=== PATIENT | female | born 1935 | race Caucasian/White ===

== ENCOUNTER 2017-11-09 00:32 | Inpatient (IN) | payer MEDICARE, OTHER ==
[2017-11-08 15:36] LABS: INR 1.03
[2017-11-09] VITALS (14 sets, daily range): BP systolic 110–148; BP diastolic 57–98
[~2017-11-09] VITALS: Ht 162.6 cm; Wt 71.7 kg
[~2017-11-09 00:32] MED LIST: CYCL1DRO6 OP; DILSR120 PO; ENO40I SQ; HCTZ25 PO; LEVO75TA68 PO; LISI-368 PO; LOR7.5/325 PO; METH5TAB85 PO; MOM PO; THY60 PO
[2017-11-09] MEDS: NORMOSOL R SOLN(*) 1000 ML BAG 1,000 ML IV PRN ×2 (06:10→12:47)
[2017-11-09] MEDS ORDERED: ACETAMINOPHEN(*)1000 MG/100 ML 100 ML IVPB ONE (07:45)
[2017-11-09] MEDS ORDERED: LIDOCAINE/SOD BICARB 8.4% SYR ID ONE (07:45)
[2017-11-09] MEDS ORDERED: cloNIDine EPIDUR INJ 100MCG/ML 40 MCG, ROPIVACAINE 0.5% 20 ML VIAL 25 ML, EPINEPHrine H... INJ ONE (07:45)
[2017-11-09] MEDS ORDERED: TRANEXAMIC AC 1000 MG/10ML SDV 1,000 MG in DEXTROSE 5% 50 ML BAG 50 ML IV ONE (07:45)
[2017-11-09] MEDS ORDERED: ceFAZolin(*) 1 GM VIAL 1 GM in NS(*) 0.9% 100 ML ADDVANT BAG 100 ML IVPB ONE (07:45)
[2017-11-09] MEDS ORDERED: MIDAZOLAM 2 MG/2 ML VIAL IVP PRN (07:45)
[2017-11-09] MEDS ORDERED: FAMOTIDINE 20 MG TAB PO ONE (07:45)
[2017-11-09] MEDS ORDERED: fentaNYL CITR 100 MCG/2 ML AMP ONE ×2 (07:47→11:05)
[2017-11-09] MEDS ORDERED: ONDANSETRON 4 MG/2 ML VIAL ONE (07:57)
[2017-11-09] MEDS ORDERED: PROPOFOL EMUL(*) 10MG/ML 20 ML 20 ML ONE (07:57)
[2017-11-09] MEDS ORDERED: LIDOCAINE MPF 1% 5 ML VIAL ONE (07:57)
[2017-11-09] MEDS ORDERED: DEXAMETHASONE SOD PHOS 10MG/ML ONE (07:57)
[2017-11-09] MEDS ORDERED: KETAMINE HCL 200 MG/20 ML MDV ONE (08:03)
[2017-11-09] MEDS ORDERED: EPHEDRINE SULFATE/NS/PF 50 MG/10 ML SYRINGE ONE (08:57)
--- NOTE | 2017-11-09 11:06 | HISTORY AND PHYSICAL ---
DATE OF ADMISSION: November 09, 2017 IDENTIFICATION, CHIEF COMPLAINT Jennifer is an 81-year-old woman with chief complaint of right hip pain. HISTORY OF PRESENT ILLNESS Patient has a longstanding history of hip arthritis, progressively painful and debilitating, refractory to conservative care. Surgery is indicated to relieve symptoms after failure of nonoperative measures. PAST MEDICAL HISTORY Notable for hypertension controlled on medication, chronic anticoagulation, history of deep vein thrombosis, hypothyroidism controlled on medication, narcolepsy. PAST SURGICAL HISTORY Notable for hysterectomy, knee arthroscopies. FAMILY HISTORY Notable for a father with heart disease and mother with arthritis. SOCIAL HISTORY Negative for tobacco and alcohol use. ALLERGIES She has no known drug allergies. CURRENT MEDICATIONS 1. Lisinopril 20 mg p.o. q.day. 2. Diltiazem 120 mg p.o. q.day. 3. Hydrochlorothiazide 25 mg p.o. q.day. 4. Levothyroxine 75 mcg p.o. q.day. 5. Coumadin 5 mg p.o. q.day and 7.5 mg on Wednesdays. PHYSICAL EXAMINATION GENERAL: This is a well-developed female who appears stated age. HEENT: She is normocephalic, atraumatic. NECK: Supple. LUNGS: Clear. HEART: Regular. ABDOMEN: Soft. ORTHOPEDIC EXAM: The right hip is painful with any combined flexion and rotation. She is stiff at the end range of internal rotation. She has mild loss of abduction. Hip girdle strength is reasonable within the comfortable range. Skin envelope is intact. Neurovascular function is intact. Calf is nontender. RADIOGRAPHIC DATA Radiographs demonstrate end-stage hip arthritis. ASSESSMENT Right hip end-stage degenerative joint disease, progressively painful and debilitating, refractory to conservative care. PLAN Per patient request, we are going to proceed with total hip arthroplasty. Nature of the procedure, risks, benefits, and nonoperative alternatives are reviewed. Risks of the procedure include, but are not limited to, , major medical or anesthetic complication, infection, neurovascular injury, blood transfusion, stiffness, scarring, fracture, tendon rupture, instability, leg length discrepancy, implant loosening, migration or failure, persistent or recurrent pain, need for additional surgery, and other unforeseen. She understands and wishes to proceed. Signed permit was placed in the chart, no guarantees given or implied. An anticoagulation regimen has been determined by her primary care physician. Will follow this for perioperative DVT prophylaxis. TOMAS
[2017-11-09] MEDS ORDERED: FLUSH 10 ML SYR IVP PRN (11:15)
[2017-11-09] MEDS ORDERED: ZOLPIDEM TARTRATE 5 MG TAB PO PRN (11:15)
[2017-11-09] MEDS ORDERED: PROMETHAZINE 25 MG/ML 1 ML AMP IVP PRN (11:15)
[2017-11-09] MEDS ORDERED: diphenhydrAMINE 50 MG/ML VIAL IVP PRN (11:15)
[2017-11-09] MEDS ORDERED: DIAZEPAM 5 MG TAB PO PRN (11:15)
[2017-11-09] MEDS ORDERED: NORMOSOL R SOLN(*) 1000 ML BAG 1,000 ML IV PRN (11:15)
[2017-11-09] MEDS ORDERED: BENZOCAINE/MENTHOL 1 EACH LOZG PO PRN (11:15)
[2017-11-09] MEDS ORDERED: BISACODYL 10 MG SUPP PR PRN (11:15)
[2017-11-09] MEDS ORDERED: ACETAMINOPHEN 325 MG TAB PO PRN (11:15)
[2017-11-09] MEDS: APAP/HYDROCODONE 325/7.5 TAB PO PRN ×3 (12:30→21:01)
[2017-11-09] MEDS ORDERED: METH27TA2 PO (13:41)
--- NOTE | 2017-11-09 13:44 | Hospitalist Consultation ---
History of Present Illness Requesting Physician Dr. Han Reason for Consult Medication Management Chief Complaint s/p right total hip replacement History of Present Illness She was admitted s/p right total hip replacement. She has a history of DVT in 2013 and Factor V Leiden deficiency. Past medical history includes hypertension , narcolepsy, hypothyroidism, and osteoarthritis. History Problems: (1) Hypertension Status: Chronic (2) Hypothyroidism Status: Chronic (3) Narcolepsy Status: Chronic (4) Factor V deficiency Status: Chronic (5) DVT (deep venous thrombosis) Status: Resolved Home Meds Reported Medications Methylphenidate Hcl (METHYLPHENIDATE ER) 27 Mg Tab.er.24, 27 MG PO QDAY 11/09/17 Levothyroxine Sodium (Levothyroxine Sodium) 75 Mcg Tablet, 0.075 MG PO DAILY, 0 Refills 07/19/09 Enoxaparin Sodium (Lovenox) 40 Mg/0.4 Ml Syr, 40 MG SQ QDAY, 0 Refills TWO WEEK SUPPLY 07/19/09 Diltiazem Hcl (Diltiazem Er) 120 Mg Cap.sr.12h, 120 MG PO BID, 0 Refills 07/16/09 Cyclosporine (Restasis) 32 Ea [place], 1 EA OP QPM, 0 Refills 07/16/09 Hydrochlorothiazide (Hydrochlorothiazide) 25 Mg Tab, 25 MG PO QDAY, 0 Refills 07/16/09 Lisinopril (Lisinopril) 20 Mg Tablet, 1 TAB PO QAM, 0 Refills 07/16/09 Discontinued Reported Medications Acetaminophen/Hydrocodone (Lortab 7.5/325 Mg) 7.5 Mg/325 Mg Tab, 1 - 2 TAB PO Q4H Y, #40 0 Refills 07/19/09 Al Hydroxide/Mg Hydroxide (Milk Of Magnesia) 30 Ml Susp, 30 ML PO Q8H Y, 0 Refills 07/19/09 Methylphenidate Hcl (Ritalin) 5 Mg Tablet, 5 MG PO TID, 0 Refills 07/16/09 Thyroid ([place] Thyroid) 60 Mg Tab, 60 MG PO QAM, 0 Refills 07/16/09 Allergies: Coded Allergies: No Known Drug Allergies (Verified , 11/09/17) Patient History: FH: PR (myocardial infarction) FATHER Hx Smoking: No Smoking Status: Never Smoker Caffeine Intake: Coffee, Tea Caffeine/Cups Per Day: 3-4 Hx Alcohol Use: Yes Alcohol Used: Wine Hx Substance Use Disorder: No Social Drug Use: Never Review of Systems All Systems Reviewed/Normal: Yes, Except as Noted Exam Vital Signs Vital Signs Date Time Temp Pulse Resp B/P (MAP) Pulse Ox O2 Delivery O2 Flow Rate FiO2 11/09/17 12:05 80 12 96 11/09/17 06:13 96.9 130/77 (94) Room Air General Appearance: Alert, Awake, No Acute Distress, Afebrile Cardiovascular: Regular Rate and Rhythm Respiratory: No Respiratory Distress, Clear to Auscultation Psych: Alert & Oriented X3, Appropriate Mood & Affect Assessment and Plan Problems: (1) Status post right hip replacement Status: Acute Assessment & Plan: She has history of DVT in 2013. She will be placed on Lovenox starting tomorrow. She will restart Coumadin tonight. We will order daily INR's for management of Coumadin levels. (2) Factor V deficiency Status: Chronic Assessment & Plan: She is on chronic treatment with Coumadin. See above. (3) Hypertension Status: Chronic Assessment & Plan: She is on chronic treatment with Diltiazem, Lisinopril, and hydrochlorothiazide. The medications have been restarted with hold parameters. (4) Hypothyroidism Status: Chronic Assessment & Plan: She is on chronic treatment with levothyroxine. (5) Narcolepsy Status: Chronic Assessment & Plan: She is on chronic treatment with methylphenidate. Venous Thromboembolism Antithrombotics Is Pt On Any Antithrombotics?: Yes ALYSHA LEDESMAP Nov 09, 2017 13:44
--- NOTE | 2017-11-09 14:52 | RADIOLOGY IMAGING REPORT ---
FACILITY: [facility] PATIENT NAME: Jennifer Lion : 1935 MR: [id number] V: [id number] EXAM DATE: ORDERING PHYSICIAN: TARA SCHAEFFER TECHNOLOGIST: Location: [facility] Patient: Jennifer Lion : 1935 Visit/Account:[id number] Date of Sevice: 11/09/2017 Exam type: PELVIS History: S/P R JEAN CARLOS Comparison: August 10, 2017. Findings: A single AP view the right hip reveals a right hip arthroplasty that appears in good anatomic alignme nt. Soft tissue gas projects over this postoperative hip IMPRESSION: 1. As above Report Dictated By: Tavia Roberto MD at 11/09/2017 2:47 PM Report E-Signed By: Tavia Roberto MD at 11/09/2017 2:48 PM WSN:[id number]
[2017-11-09] MEDS: ceFAZolin(*) 1 GM VIAL 1 GM in NS(*) 0.9% 100 ML ADDVANT BAG 100 ML IVPB SCH (16:17)
[2017-11-09] MEDS: CELECOXIB 200 MG CAP PO SCH (16:44)
[2017-11-09] MEDS ORDERED: WARFARIN SOD 10 MG TAB PO ONE (21:00)
[2017-11-09] MEDS: DILTIAZEM CD 120 MG CAPCR PO SCH (21:07)
[2017-11-09] MEDS: diphenhydrAMINE 25 MG CAP PO PRN (21:12)
[2017-11-10] MEDS: ceFAZolin(*) 1 GM VIAL 1 GM in NS(*) 0.9% 100 ML ADDVANT BAG 100 ML IVPB SCH ×2 (01:03→08:37)
[2017-11-10 03:49] VITALS: BP 141/83
[2017-11-10] MEDS: APAP/HYDROCODONE 325/7.5 TAB PO PRN ×3 (03:57→21:36)
[2017-11-10] MEDS: LEVOTHYROXINE SOD 0.075 MG TAB PO SCH (05:31)
[2017-11-10 05:39] LABS: INR 1.05
[2017-11-10 07:37] VITALS: BP 143/73
[2017-11-10] MEDS: DILTIAZEM CD 120 MG CAPCR PO SCH ×3 (08:36→20:51)
[2017-11-10] MEDS: CELECOXIB 200 MG CAP PO SCH ×2 (08:37→16:21)
[2017-11-10] MEDS: METHYLPHENIDATE 27 MG TABER PO SCH (08:37)
[2017-11-10] MEDS: ENOXAPARIN 100 MG/ML SYR SC SCH ×2 (08:37→20:52)
[2017-11-10] MEDS: HYDROCHLOROTHIAZIDE 25 MG TAB PO SCH (08:38)
[2017-11-10] MEDS: LISINOPRIL 20 MG TAB PO SCH (08:38)
[2017-11-10] MEDS ORDERED: THYROID 60 MG TAB PO SCH (09:00)
[2017-11-10] MEDS ORDERED: DILTIAZEM CD 120 MG CAPCR PO SCH (09:00)
[2017-11-10] MEDS ORDERED: METHYLPHENIDATE HCL 5 MG TAB PO SCH (09:00)
[2017-11-10] MEDS ORDERED: LISINOPRIL 20 MG TAB PO SCH (09:00)
[2017-11-10 11:22] VITALS: BP 122/67
--- NOTE | 2017-11-10 11:40 | Hospitalist Progress Note ---
Subjective Progress Notes Subjective She has no complaints this morning. Patient Complains of: Cardiovascular: No: Chest Pain Respiratory: No: Shortness of Breath Physical Exam Vital Signs Date Time Temp Pulse Resp B/P (MAP) Pulse Ox O2 Delivery O2 Flow Rate FiO2 11/10/17 11:22 98.5 95 12 122/67 (85) 90 Room Air 11/10/17 07:44 2.0 Intake and Output 11/11/17 01:00 Intake Total 971 ml Balance 971 ml Intake Oral 760 ml IV Total 211 ml # Voids 1 General Appearance: Alert, Awake, No Acute Distress, Afebrile Cardiovascular: Regular Rate and Rhythm Respiratory: No Respiratory Distress, Clear to Auscultation Psych: Alert & Oriented X3, Appropriate Mood & Affect Assessment and Plan Problems: (1) Status post right hip replacement Status: Acute Assessment & Plan: She has history of DVT in 2013. She will be placed on Lovenox starting today. She restarted Coumadin last night. We will order daily INR's for management of Coumadin levels. INR today is 1.05. (2) Factor V deficiency Status: Chronic Assessment & Plan: She is on chronic treatment with Coumadin. See above. (3) Hypertension Status: Chronic Assessment & Plan: She is on chronic treatment with Diltiazem, Lisinopril, and hydrochlorothiazide. The medications have been restarted with hold parameters. (4) Hypothyroidism Status: Chronic Assessment & Plan: She is on chronic treatment with levothyroxine. (5) Narcolepsy Status: Chronic Assessment & Plan: She is on chronic treatment with methylphenidate. Exam Sepsis Risk: No Definite Risk ALYSHA LEDESMA CYBER SECURITY ADMINISTRATOR Nov 10, 2017 11:40
--- NOTE | 2017-11-10 14:26 | OPERATIVE REPORT 1 ---
EVENT DATE: November 09, 2017 SURGEON: Ras Han MD ANESTHESIOLOGIST: Chandu Acosta MD ANESTHESIA: General plus spinal. NUTRITION THERAPIST: ARTURO Doran PREOPERATIVE DIAGNOSIS Right hip degenerative joint disease. POSTOPERATIVE DIAGNOSIS Right hip degenerative joint disease. PROCEDURE PERFORMED Right total hip arthroplasty. ESTIMATED BLOOD LOSS Minimal. DRAINS None. SPECIMENS None. COMPLICATIONS The initial acetabular components it not adequately fixed, requiring explantation and reimplantation of a larger more highly coated acetabular component. IMPLANTS USED Jarrod Secur-Fit stem size 9, a 36 mm +2.5 Biolox Alumina ceramic head. A 52 mm Tritanium hemispherical cluster hole shell with two 6.5 screws for adjuvant fixation, a 0 degree poly insert, a Trident 48 PSL MANNING coated was explanted. INDICATIONS Jennifer is an 82-year-old woman with intractable pain related to end-stage hip arthritis. Surgery is indicated to relieve symptoms after failure of nonoperative measures. DESCRIPTION OF PROCEDURE Patient was taken to the operating room. She was placed supine on the operating room table. Spinal block is administered by the anesthesiologist. General anesthesia is induced. Antibiotics are administered IV. The patient is subsequently positioned left lateral decubitus on a well-padded peg board, pelvis secured in a vertical position. All bony prominences and superficial nerves are well padded. Right hip girdle and lower extremity are prepped and draped in the usual sterile fashion for orthopedic surgery. A small incision, posterolateral approach is made, carried down through the skin and subcu to the deep fascia. Fascia is incised over the tip of the trochanter, extended distally in line with the femur, proximally in line with the mark fibers. Mark fibers are split bluntly. Trochanteric bursa is excised. Interval between the abductor and external rotator is identified. A blunt Hohmann is used to protect the abductor mechanism. An L capsulotomy/tenotomy is performed with the horizontal limb just above the pyriformis and the vertical limb peeling the capsule and the external rotators off the posterior femur. This is tagged with #2 Vicryl for later anatomic reattachment. Femoral head is dislocated. End-stage arthritis is noted. A 1.5 cm neck cut is made consistent with preoperative templating. Femoral head is extracted. Femur is translocated anteriorly. Periacetabular retractors are placed with the tips down on bone. Labrum and pulvinar are excised. The patient has a retroverted [place] acetabulum. A medial reaming with the 44 is used to medialize to the true medial wall of the acetabulum. This is expanded in 2 mm increments up to 48. Good rim contact is obtained. Trial 48 has good line to line fit. The actual PSL shell is then impacted in approximately 45 degrees of lateral opening and 20 degrees of anteversion using the extracorporeal guide as well as internal bony landmarks to guide socket placement. Due to the retroversion, the relatively limited posterior superior wall, as this does not obtain great purchase, I drilled a central 2.5 mm hole to reassess the potential depth medially and medialized a bit more with the reamer and expanded up. A more highly coated hemispherical shell was selected, reamed up to 51, and a trial 52 has good rim fit, and a Tritanium cup is implanted in the same position. Two adjuvant screws are placed posterior superior to ensure solid fixation. Rock solid fixation is achieved. 0 degree liner is impacted into the socket. Attention is turned to femoral preparation. Superior neck is resected with a cookie cutter. Cherrie awl finds the canal. Tapered reaming is performed up to 9, where good endosteal contact is obtained. Broaching starts with a 7, follows up to 9, taking care to lateralize and follow the version of the calcar at about 10-15 degrees of anteversion. Trial reduction is performed off of the 9 broach, and good religious of limb length and stability are achieved. The actual stem is impacted and seats at the same height, +2.5 is optimal for religious of limb length, soft tissue tension and stability. The Cotter taper is lavaged and dried. The actual Biolox head is impacted into position. Joint is reduced. Surfaces are copiously lavaged. Pain cocktail is infiltrated throughout the wound. The capsule and external rotators are reapproximated through drill holes posterolaterally on the trochanter. Deep fascia is closed with #2 Ethibond distally, #2-Vicryl proximally. Subcu is closed with 3-0 Vicryl, skin with surgical isauro. Xeroform is applied followed by dry sterile dressing and hip wrap. Patient is rolled supine. Abduction pillow is placed. She is awakened from anesthesia and taken to the recovery room in stable condition, having tolerated procedure well. Plan is for standard JEAN CARLOS rehab protocol. MTDD
[2017-11-10 14:58] VITALS: BP 135/74
[2017-11-10 16:57] VITALS: Ht 162.6 cm; Wt 71.7 kg
[2017-11-10] MEDS ORDERED: cycloSPORINE 0.05% EMUL 1 DROP OU SCH (17:00)
[2017-11-10 20:41] VITALS: BP 131/82
[2017-11-10] MEDS ORDERED: WARFARIN SOD 7.5 MG TAB PO SCH (21:00)
[2017-11-10] MEDS: diphenhydrAMINE 25 MG CAP PO PRN (21:36)
[2017-11-10 23:25] VITALS: BP 120/67
[2017-11-11 03:08] VITALS: BP 150/97
[2017-11-11] MEDS: APAP/HYDROCODONE 325/7.5 TAB PO PRN ×3 (04:07→21:21)
[2017-11-11] MEDS: LEVOTHYROXINE SOD 0.075 MG TAB PO SCH (05:57)
[2017-11-11 07:14] VITALS: BP 138/72
[2017-11-11 07:19] LABS: INR 1.34
[2017-11-11] MEDS: DILTIAZEM CD 120 MG CAPCR PO SCH ×2 (08:43→21:21)
[2017-11-11] MEDS: CELECOXIB 200 MG CAP PO SCH ×2 (08:43→16:24)
[2017-11-11] MEDS: METHYLPHENIDATE 27 MG TABER PO SCH (08:44)
[2017-11-11] MEDS: ENOXAPARIN 100 MG/ML SYR SC SCH ×2 (08:45→21:21)
[2017-11-11] MEDS: LISINOPRIL 20 MG TAB PO SCH (08:45)
[2017-11-11] MEDS: HYDROCHLOROTHIAZIDE 25 MG TAB PO SCH (08:46)
[2017-11-11 11:17] VITALS: BP 146/78
--- NOTE | 2017-11-11 11:44 | Hospitalist Progress Note ---
Subjective Progress Notes Subjective She has no complaints this morning. Patient Complains of: Cardiovascular: No: Chest Pain Respiratory: No: Shortness of Breath Physical Exam Vital Signs Date Time Temp Pulse Resp B/P (MAP) Pulse Ox O2 Delivery O2 Flow Rate FiO2 11/11/17 11:17 98.1 74 16 146/78 (100) 95 Nasal Cannula 0.5 Intake and Output 11/12/17 06:59 Intake Total 360 ml Balance 360 ml Intake Oral 360 ml # Voids 1 General Appearance: Alert, Awake, No Acute Distress, Afebrile Cardiovascular: Regular Rate and Rhythm Respiratory: No Respiratory Distress, Clear to Auscultation Psych: Alert & Oriented X3, Appropriate Mood & Affect Assessment and Plan Problems: (1) Status post right hip replacement Status: Acute Assessment & Plan: She has history of DVT in 2013. She started Lovenox 11/10. She restarted Coumadin 11/09. We will order daily INR's for management of Coumadin levels. INR today is 1.34. (2) Factor V deficiency Status: Chronic Assessment & Plan: She is on chronic treatment with Coumadin. See above. (3) Hypertension Status: Chronic Assessment & Plan: She is on chronic treatment with Diltiazem, Lisinopril, and hydrochlorothiazide. The medications have been restarted with hold parameters. (4) Hypothyroidism Status: Chronic Assessment & Plan: She is on chronic treatment with levothyroxine. (5) Narcolepsy Status: Chronic Assessment & Plan: She is on chronic treatment with methylphenidate. Exam Sepsis Risk: No Definite Risk ALYSHA LEDESMA TOPLINE BEADING MACHINE TENDER Nov 11, 2017 11:43
[2017-11-11 14:58] VITALS: BP 100/58
[2017-11-11] MEDS ORDERED: WARFARIN SOD 5 MG TAB PO SCH (21:00)
[2017-11-11 21:16] VITALS: BP 164/78
[2017-11-11] MEDS: MAGNESIUM HYDROXIDE* 30ML UDCP PO PRN (21:20)
[2017-11-11 23:24] VITALS: BP 123/61
[2017-11-12 03:05] VITALS: BP 132/64
[2017-11-12] MEDS: APAP/HYDROCODONE 325/7.5 TAB PO PRN (05:37)
[2017-11-12] MEDS: LEVOTHYROXINE SOD 0.075 MG TAB PO SCH (05:37)
[2017-11-12 06:14] LABS: INR 1.56
[2017-11-12 08:00] VITALS: BP 138/66
[2017-11-12] MEDS: DILTIAZEM CD 120 MG CAPCR PO SCH (08:12)
[2017-11-12] MEDS: HYDROCHLOROTHIAZIDE 25 MG TAB PO SCH (08:12)
[2017-11-12] MEDS: LISINOPRIL 20 MG TAB PO SCH (08:12)
[2017-11-12] MEDS: METHYLPHENIDATE 27 MG TABER PO SCH (08:23)
[2017-11-12] MEDS: CELECOXIB 200 MG CAP PO SCH (08:23)
[2017-11-12] MEDS: ENOXAPARIN 100 MG/ML SYR SC SCH (08:24)
[2017-11-12] MEDS: MAGNESIUM HYDROXIDE* 30ML UDCP PO PRN (08:24)
--- NOTE | 2017-11-12 09:41 | Hospitalist Progress Note ---
Subjective Progress Notes Subjective She has no complaints this morning. Patient Complains of: Cardiovascular: No: Chest Pain Respiratory: No: Shortness of Breath Physical Exam Vital Signs Date Time Temp Pulse Resp B/P (MAP) Pulse Ox O2 Delivery O2 Flow Rate FiO2 11/12/17 08:15 96 Nasal Cannula 0.5 11/12/17 08:00 98.2 16 138/66 (90) 11/12/17 03:05 70 General Appearance: Alert, Awake, No Acute Distress, Afebrile Cardiovascular: Regular Rate and Rhythm Respiratory: No Respiratory Distress, Clear to Auscultation Psych: Alert & Oriented X3, Appropriate Mood & Affect Assessment and Plan Problems: (1) Status post right hip replacement Status: Acute Assessment & Plan: She has history of DVT in 2013. She started Lovenox 11/10. She restarted Coumadin 11/09. We will order daily INR's for management of Coumadin levels on ECF. INR today is 1.56. (2) Factor V deficiency Status: Chronic Assessment & Plan: She is on chronic treatment with Coumadin. See above. (3) Hypertension Status: Chronic Assessment & Plan: She is on chronic treatment with Diltiazem, Lisinopril, and hydrochlorothiazide. The medications have been started with hold parameters. (4) Hypothyroidism Status: Chronic Assessment & Plan: She is on chronic treatment with levothyroxine. (5) Narcolepsy Status: Chronic Assessment & Plan: She is on chronic treatment with methylphenidate. Exam Sepsis Risk: No Definite Risk ALYSHA LEDESMA TAPE SEWING MACHINE OPERATOR Nov 12, 2017 09:41
[2017-11-12] MEDS ORDERED: WARF5TAB23 PO (16:26)
== END 2017-11-12 11:30 | DRG 470 ==
LOC: OR 00:32 → MED 12:05
PROVIDERS: ADMIT Orthopaedic Surgery; ATTEND Orthopaedic Surgery
PROC: 0SR904Z Replacement of Right Hip Joint with Ceramic on Polyethylene Synthetic Substitute, Open Approach (ICD-10-PCS; principal; 2017-11-09 08:31)
DX: M16.11 Unilateral primary osteoarthritis, right hip (principal); D68.51 Activated protein C resistance; I10 Essential (primary) hypertension; E03.9 Hypothyroidism, unspecified; G47.419 Narcolepsy without cataplexy; Z96.651 Presence of right artificial knee joint; Z86.718 Personal history of other venous thrombosis and embolism; Z79.01 Long term (current) use of anticoagulants; Z90.710 Acquired absence of both cervix and uterus; Z85.828 Personal history of other malignant neoplasm of skin
CPT/HCPCS: 36415; 72170; 85610; 86850; 86900; 86901; 97161; A9270; C1713; C1776; J0131; J0171; J0690; J0735; J1100; J1650; J1885; J2001; J2250; J2405; J2704; J2795; J3010; J3490; J7050; J7060; Q0163

== ENCOUNTER 2017-11-12 11:35 | Inpatient (IN) | payer MEDICARE, OTHER ==
[~2017-11-12] VITALS: Ht 162.6 cm; Wt 77.0 kg
[~2017-11-12 11:35] MED LIST changes: +METH27TA2 PO
[2017-11-12 11:50] VITALS: BP 147/65
[2017-11-12] MEDS ORDERED: DILTIAZEM CD 120 MG CAPCR PO SCH (12:17)
[2017-11-12] MEDS ORDERED: HYDROCHLOROTHIAZIDE 25 MG TAB PO SCH (12:17)
[2017-11-12] MEDS ORDERED: ACETAMINOPHEN 325 MG TAB PO PRN (12:17)
[2017-11-12] MEDS ORDERED: BISACODYL 10 MG SUPP PR PRN (12:17)
[2017-11-12] MEDS ORDERED: WARFARIN SOD 7.5 MG TAB PO SCH (12:17)
[2017-11-12] MEDS ORDERED: LISINOPRIL 20 MG TAB PO SCH (12:17)
[2017-11-12] MEDS ORDERED: MAGNESIUM HYDROXIDE* 30ML UDCP PO PRN (12:20)
--- NOTE | 2017-11-12 12:49 | Consultant Pharmacy Review ---
Chief Cloth Finishing Range Operator Review Medication Review Do All Mecications have a Diag: Yes Disease-Drug Interactions History of Falls/Fractures: Opioids Other General Cautions Lexicomp Interaction Analysis A = No known interaction C = Monitor therapy X = Avoid combination B = No action needed D = Consider therapy modification Drugs in this analysis: Acetaminophen; Bisacodyl; CeleBREX; Concerta; Coumadin; DilTIAZem CD; HydroCHLOROthiazide; Levothyroxine; Lortab; Lovenox; Milk of Magnesia [OTC]; Prinivil * Drug-Drug Interactions D Bisacodyl Milk of Magnesia [OTC] (Antacids) D Levothyroxine Milk of Magnesia [OTC] (Magnesium Salts) Depends on Route C Acetaminophen Coumadin (Vitamin K Antagonists) Depends on Dose C CeleBREX (Nonsteroidal Anti-Inflammatory Agents (BECK-2 Selective)) Coumadin (Vitamin K Antagonists) C CeleBREX (Nonsteroidal Anti-Inflammatory Agents) Coumadin (Anticoagulants) Depends on International labeling C CeleBREX (Nonsteroidal Anti-Inflammatory Agents) HydroCHLOROthiazide ( Thiazide and Thiazide-Like Diuretics) C CeleBREX (Nonsteroidal Anti-Inflammatory Agents) Lovenox (Anticoagulants) Depends on International labeling C CeleBREX (Nonsteroidal Anti-Inflammatory Agents) Prinivil (Angiotensin- Converting Enzyme Inhibitors) C Concerta (Methylphenidate) Coumadin (Vitamin K Antagonists) C Concerta (Methylphenidate) DilTIAZem CD (Antihypertensive Agents) C Concerta (Methylphenidate) HydroCHLOROthiazide (Antihypertensive Agents) C Concerta (Methylphenidate) Milk of Magnesia [OTC] (Antacids) Depends on Brand Name C Concerta (Methylphenidate) Prinivil (Antihypertensive Agents) C Coumadin (Vitamin K Antagonists) Levothyroxine (Thyroid Products) C Coumadin (Vitamin K Antagonists) Lortab (Acetaminophen) Depends on Dose C Coumadin (Vitamin K Antagonists) Lovenox (Anticoagulants) Depends on Laboratory/Diagnostic Result C DilTIAZem CD (Calcium Channel Blockers) Milk of Magnesia [OTC] (Magnesium Salts) C DilTIAZem CD (CY Inhibitors (Moderate)) Lortab (HYDROcodone) Depends on Additional drug/group C HydroCHLOROthiazide (Diuretics) Lortab (Opioid Analgesics) C HydroCHLOROthiazide (Thiazide and Thiazide-Like Diuretics) Prinivil ( Angiotensin-Converting Enzyme Inhibitors) C Lovenox (Heparins (Low Molecular Weight)) Prinivil (Angiotensin-Converting Enzyme Inhibitors) B Acetaminophen Lortab (Opioid Analgesics) B CeleBREX (Nonsteroidal Anti-Inflammatory Agents) DilTIAZem CD (Calcium Channel Blockers) B CeleBREX (Nonsteroidal Anti-Inflammatory Agents) Milk of Magnesia [OTC] ( Antacids) A Coumadin (Vitamin K Antagonists) Milk of Magnesia [OTC] (Antacids) Pneumococcal Vaccine HX Pneumo Vac (Aovjewx23): No HX Pneumo Vac (Pneumovax): No Comments Regarding the Review Patient is a candidate for Pneumococcal vaccination but has not received possibly due to refusal. Please re-evaluate Lortab use every 2 weeks due to fall risk. Periodic INR should be done due to Coumadin use and lovenox should be discontinued once INR therapeutic. MARKOS TEE Nov 12, 2017 12:49
--- NOTE | 2017-11-12 13:50 | PT ECF NOTE ---
Type of Note: Initial Note Primary Medical Diagnosis: s/p R) JEAN CARLOS (WBAT) Physical Therapy Evaluation Date: 11/12/17 SUBJECTIVE: Prior Hospitalization: [facility] 11/09/17-11/12/17 Prior Level of Function: I) with no AD Prior Living Status: Two stairs to enter home, with sunken living room once inside Community Services: No known needs Home Accessibility: Two stairs Equipment Owned: Front wheeled walker, Toilet riser Medical Complications/Past Medical History: See EMR Psychosocial Support: Supportive daughters in [place], elderly in [place] Pain Scale (0-10): 510 OBJECTIVE: Strength: Right Lower Extremity: DF: 4/5 Knee flexion: 3+/5 Knee extension: 3+/5 Hip flexion: NT d/t hip precautions Left Lower Extremity: DF: 4/5 Knee flexion:4/5 Knee extension:4/5 Hip flexion: 4/5 ROM: WFL, R) hip ROM limited by posterior hip precautions Sensation: WNL Other Neuro findings: N/A Bed Mobility: Sit to supine, SBA with verbal cues to prevent hip adduction Transfers: SBA with RW Gait: SBA with RW x200' Stairs: NT 10 meter walk test (0.6m/second cannot function independently): 0.55 m/sec ASSESSMENT: PT ECF eval complete. Pt requires increased time for all functional mobility and requires SBA with use of RW. She will need to be at a Ken for all mobility at the time of d/c home with her elderly . She will benefit from skilled rehab in order to increase independence with functional mobility and decrease need of assistance from others prior to d/c home. 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 Pt/Caregiver Training Bed Mobility Thank you for this referral. If you have any questions, concerns, or comments about this report or plan, please contact me at . Ellie Garay, PT, DPT [facility]
--- NOTE | 2017-11-12 15:28 | OT ECF NOTE ---
Type of Note: Initial Note Primary Medical Diagnosis: Generalized weakness s/p R JEAN CARLOS *Posterior hip precautions, WBAT* Occupational Therapy Evaluation Date: 11/12/17 SUBJECTIVE: Prior Hospitalization: [facility] 11/09/17 thru 11/12/17. DOS: 11/09/[address] Han Prior Level of Function: Independent with all ADLs/IADLs Prior Living Status: Multilevel house, Spouse Community Services: No known needs Home Accessibility: Stairs without rails Equipment Owned: Front wheeled walker, Toilet riser, Head Well Puller, Sock aide Medical Complications/Past Medical History: HTN, Chronic anticoagulation, hx DVT, hypothyroidism, Narcolepsy Psychosocial Support: Spouse Pain Scale (0-10): No report of pain at evaluation OBJECTIVE: Strength: MMT: Right Left Shoulder Flexion WFL WFL Elbow Flexion WFL WFL Wrist Extension WFL WFL Skip Tender WFL WFL (5= normal, 4= good, 3= fair, 2= poor, 1= trace) ROM: Both upper extremities, WFL Sensation: Intact, No concerns Functional Transfer: Assistive Device: Front wheeled walker, Gait belt Transfer Ability: SBA ADL: Upper body dressing: Assistive device: None Upper body dressing ability: Set-up Lower body dressing: Assistive device: Sock aide/Head Well Puller Lower body dressing ability: Moderate assistance Toileting: Assistive device: Toileting ability: N/T Grooming/hygiene: Assistive device: Grooming ability: N/T Bathing: Assistive device: Bathing ability: N/T Standardized Assessment: Judith Index of Activities of Daily Livin/20 upon initial evaluation (). ASSESSMENT: Jennifer presents to [facility] with decreased (I) with ADLs/IADLs s/p R JEAN CARLOS. At [facility], she was (I) with all ADLs/IADLs. She is able to recall 1/3 posterior hip precautions and requires frequent v/c's to adhere. She will benefit from skilled OT services to improve (I) and safety with engagement in ADLs/IADLs prior to discharge home. Problem List/Current Limitations: Decreased activity tolerance Decreased ROM Decreased coordination Short Term Goals: 1) Pt will be Mod (I) UB/LB dressing. 2) Pt will be Independent grooming/hygiene. 3) Pt will be Mod (I) toilet task. 4) Pt will be Mod (I) shower task. 5) Pt will be SBA light meal prep. 6) Pt Judith Index of ADLs score will improve by 2 points. Cork Insulator Helper Goals: Return home with HH vs. outpatient PT Patient Goals: Return home Rehabilitation Prognosis: Good Barriers to Discharge: None noted at this time PLAN: The patient will benefit from skilled occupational therapy services 5 times per week for 2 weeks including: Ther ex ADL training Safety training Ther act IADL training Transfer training Adaptive equip training Bed mobility Energy conservation Thank you for this referral. If you have any questions, concerns, or comments about this report or plan, please contact me at . Eveline Mai MS, OTR/L Occupational Therapist TOMAS
[2017-11-12] MEDS ORDERED: WARF5TAB23 PO (16:26)
[2017-11-12 16:37] VITALS: BP 124/67
[2017-11-12] MEDS: CELECOXIB 200 MG CAP PO SCH (17:19)
[2017-11-12] MEDS: APAP/HYDROCODONE 325/7.5 TAB PO PRN (20:10)
[2017-11-12 20:11] VITALS: BP 124/77
[2017-11-12] MEDS: DILTIAZEM CD 120 MG CAPCR PO SCH (20:11)
[2017-11-12] MEDS: ENOXAPARIN 100 MG/ML SYR SC SCH (20:15)
[2017-11-12] MEDS: DOCUSATE SODIUM 100 MG CAP PO SCH (20:15)
[2017-11-12] MEDS: WARFARIN SOD 5 MG TAB PO SCH (20:19)
[2017-11-13] MEDS: APAP/HYDROCODONE 325/7.5 TAB PO PRN ×3 (00:11→20:38)
[2017-11-13] MEDS: LEVOTHYROXINE SOD 0.075 MG TAB PO SCH (05:21)
[2017-11-13 07:45] LABS: INR 1.49
[2017-11-13 08:00] VITALS: BP 127/57
[2017-11-13] MEDS: DOCUSATE SODIUM 100 MG CAP PO SCH ×2 (08:26→20:38)
[2017-11-13] MEDS: CELECOXIB 200 MG CAP PO SCH ×2 (08:26→17:36)
[2017-11-13] MEDS: ENOXAPARIN 100 MG/ML SYR SC SCH ×2 (08:26→20:39)
[2017-11-13] MEDS: METHYLPHENIDATE 27 MG TABER PO SCH (08:26)
[2017-11-13] MEDS: DILTIAZEM CD 120 MG CAPCR PO SCH ×2 (09:00→20:38)
[2017-11-13] MEDS: LISINOPRIL 20 MG TAB PO SCH (09:00)
[2017-11-13] MEDS: HYDROCHLOROTHIAZIDE 25 MG TAB PO SCH (09:00)
[2017-11-13 11:47] VITALS: Ht 162.6 cm; Wt 77.0 kg
[2017-11-13 15:54] VITALS: BP 146/71
[2017-11-13 20:16] VITALS: BP 132/63
[2017-11-13] MEDS: diphenhydrAMINE 25 MG CAP PO PRN (20:38)
[2017-11-13] MEDS: WARFARIN SOD 5 MG TAB PO SCH (20:40)
[2017-11-13] MEDS ORDERED: WARFARIN SOD 2.5 MG TAB PO ONE (21:00)
[2017-11-14] MEDS: APAP/HYDROCODONE 325/7.5 TAB PO PRN ×3 (00:48→22:38)
[2017-11-14] MEDS: LEVOTHYROXINE SOD 0.075 MG TAB PO SCH (06:13)
[2017-11-14 07:22] VITALS: BP 132/78
[2017-11-14 07:51] LABS: INR 1.72
[2017-11-14] MEDS: CELECOXIB 200 MG CAP PO SCH ×2 (08:27→17:30)
[2017-11-14] MEDS: METHYLPHENIDATE 27 MG TABER PO SCH (08:27)
[2017-11-14] MEDS: HYDROCHLOROTHIAZIDE 25 MG TAB PO SCH (08:27)
[2017-11-14] MEDS: DOCUSATE SODIUM 100 MG CAP PO SCH ×2 (08:27→20:52)
[2017-11-14] MEDS: DILTIAZEM CD 120 MG CAPCR PO SCH ×2 (08:27→20:52)
[2017-11-14] MEDS: ENOXAPARIN 100 MG/ML SYR SC SCH ×2 (08:27→20:52)
[2017-11-14] MEDS: LISINOPRIL 20 MG TAB PO SCH (08:27)
--- NOTE | 2017-11-14 12:58 | Medical Nutrition Therapy ---
Nutrition Anthropometrics Height (Inches): 64.00 Height (Calculated Centimeters: 162.404059 Weight (Pounds): 169 Weight (Calculated Kilograms): 77.026 BMI Calculated: 29.01 Jack Nutrition Score: Adequate Jack Nutrition Risk Score: 19 Dietary Referral Nutrition Risk Factors: Nutrition Risk Comment: Physical Findings Physical Appearance: Overweight BMI 25-29 Skin Appearance Skin Appearance: Edema Edema Location Modifier: Right Edema Location: Lower Extremity Type of Edema: Degree of Edema: Gastrointestinal Symptoms GI Symtoms: Constipation Tube Present: Bowel Sounds: Recent Bowel Pattern: Constipated Stool Characteristics: Nutritional Diagnosis Nutritional Risk Acuity 3: OR & > 80 yrs Nutritional Risk Acuity 4: Good Appetite Past Medical History: Factor V defiency, htn, hypothyroid Nutritional Acuity: 3-Mild Nutrition Diagnosis: Increased Nutrient Needs Nutrition Etiology: Physiological Causes Nutrition Problem/Etiology/Sym: Increased nutrient needs related to physiological causes as evidenced by recent hip surgery and need for increased protein and energy for rehab. Energy Requirement: 1550 ([id number]) Protein Requirement: 85 (1.1 g/kg) Fluid Requirement: 1925 Diet Type: Diet as Tolerated MORIS/REG Nutrition Intervention: Cont diet as ordered, Encourage intake Drug: Diuretics Drug/Nutrition Recommendations: Check Serum K+ Food Likes: prune juice hot with melted butter Do Not Serve Any of the Follow: Broccoli, Brussel Sprouts, Spinach, One [place] Lettuce, Cranberry Juice Diet Comment To [facility]: OFFER NUTR SUPPL Nutrition Monitoring & Eval RD Patient Assessment Time: [address] Assessment Type: RD Screen Patient Nutrition Acuity: 3-Mild Follow Up Date: Nov 14, 2017 Nutritional Comment: 11/13 Pt transferred to [facility] for ongoing rehab following hip replacement surg. Currently on MORIS with intake of 25-100% of three meals. No new labs. Will monitor and encourage intake. -EK 11/14 Pt intake average of 80% of MORIS. No new labs. Will cont to monitor and encourage intake. EDEN TEJEDA Nov 14, 2017 12:58
[2017-11-14 16:48] VITALS: BP 146/67
[2017-11-14 20:51] VITALS: BP 142/73
[2017-11-14] MEDS: WARFARIN SOD 5 MG TAB PO SCH (20:52)
[2017-11-14] MEDS: diphenhydrAMINE 25 MG CAP PO PRN (20:56)
[2017-11-15] MEDS: APAP/HYDROCODONE 325/7.5 TAB PO PRN ×2 (03:15→20:56)
[2017-11-15] MEDS: LEVOTHYROXINE SOD 0.075 MG TAB PO SCH (05:45)
[2017-11-15 06:16] LABS: INR 2.11
[2017-11-15 07:05] VITALS: BP 116/67
[2017-11-15] MEDS: HYDROCHLOROTHIAZIDE 25 MG TAB PO SCH (08:43)
[2017-11-15] MEDS: CELECOXIB 200 MG CAP PO SCH ×2 (08:43→17:32)
[2017-11-15] MEDS: LISINOPRIL 20 MG TAB PO SCH (08:44)
[2017-11-15] MEDS: METHYLPHENIDATE 27 MG TABER PO SCH (08:44)
[2017-11-15] MEDS: DILTIAZEM CD 120 MG CAPCR PO SCH ×2 (08:44→20:56)
[2017-11-15] MEDS: DOCUSATE SODIUM 100 MG CAP PO SCH ×2 (08:45→20:56)
--- NOTE | 2017-11-15 13:40 | Medical Nutrition Therapy ---
Nutrition Monitoring & Eval RD Patient Assessment Time: [address] Assessment Type: RD Re-Assessment Patient Nutrition Acuity: 3-Mild Follow Up Date: Nov 23, 2017 Nutritional Comment: 11/13 Pt transferred to [facility] for ongoing rehab following hip replacement surg. Currently on MORIS with intake of 25-100% of three meals. No new labs. Will monitor and encourage intake. -EK 11/14 Pt intake average of 80% of MORIS. No new labs. Will cont to monitor and encourage intake. 11/15 Intake delinied yesterday and average 69% past 3 days. Will cont to monitor and encoruage intake. CIRO ELIZABETH Nov 15, 2017 13:40
[2017-11-15 16:00] VITALS: BP 127/75
[2017-11-15 20:30] VITALS: BP 136/71
[2017-11-15] MEDS: WARFARIN SOD 5 MG TAB PO SCH (20:55)
[2017-11-15] MEDS: diphenhydrAMINE 25 MG CAP PO PRN (20:56)
[2017-11-16] MEDS: APAP/HYDROCODONE 325/7.5 TAB PO PRN ×2 (03:02→18:20)
[2017-11-16] MEDS: LEVOTHYROXINE SOD 0.075 MG TAB PO SCH (06:24)
[2017-11-16 07:15] VITALS: BP 122/73
[2017-11-16 07:30] LABS: INR 2.11
[2017-11-16] MEDS: CELECOXIB 200 MG CAP PO SCH ×2 (08:41→17:30)
[2017-11-16] MEDS: DOCUSATE SODIUM 100 MG CAP PO SCH ×2 (08:42→20:43)
[2017-11-16] MEDS: DILTIAZEM CD 120 MG CAPCR PO SCH ×2 (08:42→20:43)
[2017-11-16] MEDS: METHYLPHENIDATE 27 MG TABER PO SCH (08:43)
[2017-11-16] MEDS: HYDROCHLOROTHIAZIDE 25 MG TAB PO SCH (08:43)
[2017-11-16] MEDS: LISINOPRIL 20 MG TAB PO SCH (08:43)
--- NOTE | 2017-11-16 10:58 | HISTORY AND PHYSICAL ---
DATE OF ADMISSION: November 09, 2017 IDENTIFICATION, CHIEF COMPLAINT Jennifer is an 81-year-old woman with chief complaint of right hip pain. HISTORY OF PRESENT ILLNESS Patient has a longstanding history of hip arthritis, progressively painful and debilitating, refractory to conservative care. Surgery is indicated to relieve symptoms after failure of nonoperative measures. PAST MEDICAL HISTORY Notable for hypertension controlled on medication, chronic anticoagulation, history of deep vein thrombosis, hypothyroidism controlled on medication, narcolepsy. PAST SURGICAL HISTORY Notable for hysterectomy, knee arthroscopies. FAMILY HISTORY Notable for a father with heart disease and mother with arthritis. SOCIAL HISTORY Negative for tobacco and alcohol use. ALLERGIES She has no known drug allergies. CURRENT MEDICATIONS 1. Lisinopril 20 mg p.o. q.day. 2. Diltiazem 120 mg p.o. q.day. 3. Hydrochlorothiazide 25 mg p.o. q.day. 4. Levothyroxine 75 mcg p.o. q.day. 5. Coumadin 5 mg p.o. q.day and 7.5 mg on Wednesdays. PHYSICAL EXAMINATION GENERAL: This is a well-developed female who appears stated age. HEENT: She is normocephalic, atraumatic. NECK: Supple. LUNGS: Clear. HEART: Regular. ABDOMEN: Soft. ORTHOPEDIC EXAM: The right hip is painful with any combined flexion and rotation. She is stiff at the end range of internal rotation. She has mild loss of abduction. Hip girdle strength is reasonable within the comfortable range. Skin envelope is intact. Neurovascular function is intact. Calf is nontender. RADIOGRAPHIC DATA Radiographs demonstrate end-stage hip arthritis. ASSESSMENT Right hip end-stage degenerative joint disease, progressively painful and debilitating, refractory to conservative care. PLAN Per patient request, we are going to proceed with total hip arthroplasty. Nature of the procedure, risks, benefits, and nonoperative alternatives are reviewed. Risks of the procedure include, but are not limited to, , major medical or anesthetic complication, infection, neurovascular injury, blood transfusion, stiffness, scarring, fracture, tendon rupture, instability, leg length discrepancy, implant loosening, migration or failure, persistent or recurrent pain, need for additional surgery, and other unforeseen. She understands and wishes to proceed. Signed permit was placed in the chart, no guarantees given or implied. An anticoagulation regimen has been determined by her primary care physician. Will follow this for perioperative DVT prophylaxis. H&P ADDENDUM The above issues are resolving. Patient requires chcf care and/or skilled rehabilitation. Patient is ready for transfer to Extended Care. Any change in condition is described below. CHERD
[2017-11-16 16:15] VITALS: BP 136/79
[2017-11-16] MEDS: WARFARIN SOD 5 MG TAB PO SCH (20:43)
[2017-11-16] MEDS: diphenhydrAMINE 25 MG CAP PO PRN (20:44)
[2017-11-16 23:05] VITALS: BP 149/84
[2017-11-17] MEDS: LEVOTHYROXINE SOD 0.075 MG TAB PO SCH (05:32)
[2017-11-17] MEDS: APAP/HYDROCODONE 325/7.5 TAB PO PRN ×3 (05:32→22:37)
[2017-11-17 07:11] LABS: INR 1.87
[2017-11-17] MEDS: CELECOXIB 200 MG CAP PO SCH ×2 (07:56→17:12)
[2017-11-17 07:58] VITALS: BP 123/77
[2017-11-17] MEDS: DOCUSATE SODIUM 100 MG CAP PO SCH ×2 (08:00→20:49)
[2017-11-17] MEDS: DILTIAZEM CD 120 MG CAPCR PO SCH ×2 (08:00→20:49)
[2017-11-17] MEDS: METHYLPHENIDATE 27 MG TABER PO SCH (08:00)
[2017-11-17] MEDS: LISINOPRIL 20 MG TAB PO SCH (08:01)
[2017-11-17] MEDS: HYDROCHLOROTHIAZIDE 25 MG TAB PO SCH (08:01)
[2017-11-17] MEDS ORDERED: WARF5TAB23 PO ×2 (14:38)
--- NOTE | 2017-11-17 14:40 | Hospitalist Progress Note ---
Physical Exam Vital Signs Date Time Temp Pulse Resp B/P (MAP) Pulse Ox O2 Delivery O2 Flow Rate FiO2 11/17/17 10:39 Room Air 11/17/17 07:58 99.4 20 123/77 (92) 89 11/17/17 01:56 0.5 11/16/17 16:15 96 Intake and Output 11/18/17 07:00 Intake Total 480 ml Balance 480 ml Intake Oral 480 ml # Voids 3 # Bowel Movements 2 Assessment and Plan Problems: (1) Status post right hip replacement Status: Acute Assessment & Plan: She has history of DVT in 2013. She started Lovenox 11/10. She restarted Coumadin 11/09. We will order daily INR's for management of Coumadin levels on ECF. She is chronically on 5mg daily except for Wednesdays. On Wednesdays she takes 7.5mg. She has her INR checked every at home and will resume this schedule upon discharge. (2) Factor V deficiency Status: Chronic Assessment & Plan: She is on chronic treatment with Coumadin. See above. (3) DVT (deep venous thrombosis) Status: Resolved Assessment & Plan: Hx of DVT due to above. On chronic Coumadin therapy. (4) Hypertension Status: Chronic Assessment & Plan: She is on chronic treatment with Diltiazem, Lisinopril, and hydrochlorothiazide. The medications are ordered with hold parameters. (5) Hypothyroidism Status: Chronic Assessment & Plan: She is on chronic treatment with levothyroxine. (6) Narcolepsy Status: Chronic Assessment & Plan: She is on chronic treatment with methylphenidate. Time Spent on Plan of Care: < 30 min ARGELIA NEGRETE MD Nov 17, 2017 14:40
[2017-11-17 17:00] VITALS: BP 156/79
[2017-11-17] MEDS: diphenhydrAMINE 25 MG CAP PO PRN (20:51)
[2017-11-18] MEDS: LEVOTHYROXINE SOD 0.075 MG TAB PO SCH (05:59)
[2017-11-18 06:25] LABS: INR 1.96
[2017-11-18 07:58] VITALS: BP 150/78
[2017-11-18] MEDS: METHYLPHENIDATE 27 MG TABER PO SCH (08:39)
[2017-11-18] MEDS: CELECOXIB 200 MG CAP PO SCH ×2 (08:40→17:09)
[2017-11-18] MEDS: DILTIAZEM CD 120 MG CAPCR PO SCH ×2 (08:40→20:47)
[2017-11-18] MEDS: DOCUSATE SODIUM 100 MG CAP PO SCH ×2 (08:40→20:48)
[2017-11-18] MEDS: LISINOPRIL 20 MG TAB PO SCH (08:40)
[2017-11-18] MEDS: HYDROCHLOROTHIAZIDE 25 MG TAB PO SCH (09:00)
[2017-11-18 17:05] VITALS: BP 141/74
[2017-11-18] MEDS: APAP/HYDROCODONE 325/7.5 TAB PO PRN (20:47)
[2017-11-18] MEDS: diphenhydrAMINE 25 MG CAP PO PRN (20:47)
[2017-11-18] MEDS: WARFARIN SOD 5 MG TAB PO SCH (20:49)
[2017-11-19] MEDS: LEVOTHYROXINE SOD 0.075 MG TAB PO SCH (06:06)
[2017-11-19 07:04] LABS: INR 2.24
[2017-11-19 07:40] VITALS: BP 146/65
[2017-11-19] MEDS: CELECOXIB 200 MG CAP PO SCH ×2 (07:47→17:14)
[2017-11-19] MEDS: LISINOPRIL 20 MG TAB PO SCH (08:46)
[2017-11-19] MEDS: DILTIAZEM CD 120 MG CAPCR PO SCH ×2 (08:46→20:54)
[2017-11-19] MEDS: DOCUSATE SODIUM 100 MG CAP PO SCH ×2 (08:46→20:55)
[2017-11-19] MEDS: METHYLPHENIDATE 27 MG TABER PO SCH (08:46)
[2017-11-19] MEDS: HYDROCHLOROTHIAZIDE 25 MG TAB PO SCH (08:46)
--- NOTE | 2017-11-19 11:13 | OT ECF NOTE ---
Type of Note: Discharge Note Primary Medical Diagnosis: Generalized weakness s/p R JEAN CARLOS *Posterior hip precautions, WBAT* Occupational Therapy Evaluation Date: 11/12/17 SUBJECTIVE: Prior Hospitalization: [facility] 11/09/17 thru 11/12/17. DOS: 11/09/[address] Han Prior Level of Function: Independent with all ADLs/IADLs Prior Living Status: Multilevel house, Spouse Community Services: No known needs Home Accessibility: Stairs without rails Equipment Owned: Front wheeled walker, Toilet riser, Medical Transcription Supervisor, Sock aide Medical Complications/Past Medical History: HTN, Chronic anticoagulation, hx DVT, hypothyroidism, Narcolepsy Psychosocial Support: Spouse Pain Scale (0-10): No report of pain at evaluation OBJECTIVE: Strength: MMT: Right Left Shoulder Flexion WFL WFL Elbow Flexion WFL WFL Wrist Extension WFL WFL Wafer Fabrication Technician WFL WFL (5= normal, 4= good, 3= fair, 2= poor, 1= trace) ROM: Both upper extremities, WFL Sensation: Intact, No concerns Functional Transfer: Assistive Device: Front wheeled walker Transfer Ability: Mod (I) ADL: Upper body dressing: Assistive device: None Upper body dressing ability: Independent Lower body dressing: Assistive device: Sock aide/Medical Transcription Supervisor Lower body dressing ability: Mod (I)-Occasional Min A doffing rubio hose. Mod(I) donning rubio house. Pt reports spouse will assist with rubio hose upon discharge if needed. Toileting: Assistive device: Toilet riser Toileting ability: Mod (I) Grooming/hygiene: Assistive device: Standing Grooming ability: Independent Bathing: Assistive device: Shower chair Bathing ability: Mod (I) Standardized Assessment: Judith Index of Activities of Daily Livin/20 upon initial evaluation (). 20/20 upon discharge (11/19/17). ASSESSMENT: Jennifer presented to [facility] with decreased (I) with ADLs/IADLs s/p R JEAN CARLOS. At [facility], she was (I) with all ADLs/IADLs. She has improved (I) with ADLs and adherence to posterior hip precautions. All skilled OT goals met. Pt reports she feels ready to discharge home tomorrow with services and occasional assist from spouse. Short Term Goals: 1) Pt will be Mod (I) UB/LB dressing. GOAL MET 2) Pt will be Independent grooming/hygiene. GOAL MET 3) Pt will be Mod (I) toilet task. GOAL MET 4) Pt will be Mod (I) shower task. GOAL MET 5) Pt will be SBA light meal prep. Pt declined to address goal. Educated on walker tray AE. Pt verbalized understanding. 6) Pt Judith Index of ADLs score will improve by 2 points. GOAL MET Senior Living Goals: Return home with Patient Goals: Return home Rehabilitation Prognosis: Good Barriers to Discharge: None noted at this time PLAN: The patient will discharge home with services and occasional assist from spouse. Thank you for this referral. If you have any questions, concerns, or comments about this report or plan, please contact me at . Eveline Mai MS, OTR/L Occupational Therapist [facility]OMAS
--- NOTE | 2017-11-19 12:53 | PT ECF NOTE ---
Type of Note: Discharge Summary Primary Medical Diagnosis: s/p R) JEAN CARLOS (WBAT) Physical Therapy Discharge Date: 11/19/17 SUBJECTIVE: Prior Hospitalization: [facility] 11/09/17-11/12/17 Prior Level of Function: I) with no AD Prior Living Status: Two stairs to enter home, with sunken living room once inside Community Services: No known needs Home Accessibility: Two stairs Equipment Owned: Front wheeled walker, Toilet riser Medical Complications/Past Medical History: See EMR Psychosocial Support: Supportive daughters in [place], elderly in [place] Pain Scale (0-10): 510 OBJECTIVE: Strength: Right Lower Extremity: DF: 5/5 Knee flexion: 3+/5 Knee extension: 3+/5 Hip flexion: NT d/t hip precautions Left Lower Extremity: DF: 5/5 Knee flexion:5/5 Knee extension:5/5 Hip flexion: 4/5 ROM: WFL, R) hip ROM limited by posterior hip precautions Sensation: WNL Other Neuro findings: N/A Bed Mobility: Tim Transfers: Tim with RW Gait: Tim x450' with RW Stairs: Tim x 4 stairs 10 meter walk test (0.6m/second cannot function independently): 0.9 m/sec ASSESSMENT: Pt has met all PT goals and is safe to d/c home from a mobility stand point when medically appropriate. She is Tim with all functional mobility and demonstrates a functional improvement in gait speed. Pt has no other concerns at this time and is confident with d/c plan with [facility] services in place. Problem List/Current Limitations: Pain Decreased activity greer Decreased strength Decreased ROM Decreased balance Short Term Goals: (goals met) 1: Pt to complete bed mobility with Tim and HOB flat with no use of bed rail 2: Pt to complete transfers with Tim and least restrictive AD 3: Pt to ambulate 400' with Tim and least restrictive AD 4: Pt to asc/desc platform stair x2 repetitions with SBA 5: Pt to improve gait speed to 0.8 m/sec to indicate an improvement in function Correction Goals: Pt to d/c home with appropriate level of care in place Patient Goals: Discharge home with spouse PLAN: The patient will d/c home with [facility] services. Thank you for this referral. If you have any questions, concerns, or comments about this report or plan, please contact me at . Ellie Garay, PT, DPT CHERD
[2017-11-19] MEDS ORDERED: HYDR-4308 PO (15:01)
[2017-11-19] MEDS ORDERED: HYDR-4309 PO (15:02)
[2017-11-19 15:57] VITALS: BP 139/83
[2017-11-19 20:52] VITALS: BP 153/76
[2017-11-19] MEDS: WARFARIN SOD 5 MG TAB PO SCH (20:54)
[2017-11-19] MEDS: APAP/HYDROCODONE 325/7.5 TAB PO PRN (20:57)
[2017-11-19] MEDS: diphenhydrAMINE 25 MG CAP PO PRN (20:57)
[2017-11-20] MEDS: LEVOTHYROXINE SOD 0.075 MG TAB PO SCH (05:25)
[2017-11-20 07:35] VITALS: BP 153/86
[2017-11-20] MEDS: CELECOXIB 200 MG CAP PO SCH (07:50)
[2017-11-20] MEDS: HYDROCHLOROTHIAZIDE 25 MG TAB PO SCH (09:00)
[2017-11-20] MEDS: DOCUSATE SODIUM 100 MG CAP PO SCH (09:04)
[2017-11-20] MEDS: DILTIAZEM CD 120 MG CAPCR PO SCH (09:04)
[2017-11-20] MEDS: LISINOPRIL 20 MG TAB PO SCH (09:05)
[2017-11-20] MEDS: APAP/HYDROCODONE 325/7.5 TAB PO PRN (09:05)
[2017-11-20] MEDS: METHYLPHENIDATE 27 MG TABER PO SCH (09:05)
--- NOTE | 2017-12-07 17:27 | DISCHARGE SUMMARY ---
REASON FOR ADMISSION Patient status post hip arthroplasty, admitted to the extended care facility for ongoing safety and mobility training prior to discharge. HOSPITAL COURSE Patient makes steady progress in the ECF. At the time of discharge her wound condition is benign. She is cleared by Therapy for safety and mobility and she is voiding and stooling normally. DISPOSITION Discharged home. FOLLOWUP With Dr. Han in one week. DISCHARGE MEDICATIONS 1. Include preop home meds at the usual dose. 2. Coumadin per hospitalist for DVT prophylaxis. 3. Hydrocodone for pain. DIET Ad zachary. CONDITION ON DISCHARGE Stable. DISCHARGE INSTRUCTIONS Posterior hip precautions. Weight bear as tolerated. Outpatient PT per protocol. Call immediately for fever, chills, wound problems, uncontrolled pain or other concerns. TOMAS
== END 2017-11-20 09:30 | disposition home health service (06) | DRG 560 ==
LOC: ECF 11:35
PROVIDERS: ADMIT Internal Medicine; ATTEND Internal Medicine
DX: Z47.1 Aftercare following joint replacement surgery (principal); D68.51 Activated protein C resistance; I10 Essential (primary) hypertension; G47.419 Narcolepsy without cataplexy; Z96.651 Presence of right artificial knee joint; E03.9 Hypothyroidism, unspecified; Z96.641 Presence of right artificial hip joint; Z79.01 Long term (current) use of anticoagulants; Z86.718 Personal history of other venous thrombosis and embolism; Z90.710 Acquired absence of both cervix and uterus; Z85.828 Personal history of other malignant neoplasm of skin
CPT/HCPCS: 36415; 85610; 97161; 97165; A9270; J1650; Q0163